=== PATIENT | female | born 1985 | race African-American/Black ===

== ENCOUNTER 2020-04-13 10:25 | Emergency (ER) | payer SELFPAY ==
--- NOTE | 2020-04-13 10:33 | ED_ITS ---
HPI - General Adult General Stated complaint: left side abd pin History of Present Illness HPI narrative: I did not fully evaluate this patient. She presented with left sided upper abdominal pain. I discussed with patient prior to registration that we would be happy to evaluate her at [facility] and were not refusing her service, but did not have abilities to fully work-up abdominal pain with items such as blood work, ultrasound, CT scan etc and there was a possibility that she would likely be sent to the ER for further evaluation after her initial evaluation here. She has opted to not stay at [facility] for initial evaluation and would like to seek care elsewhere. I did let her know that we were always here for her in the future for any problems she may experience and wished her good luck. Related Data Allergies Allergy/AdvReac Type Severity Reaction Status Date / Time Penicillins Allergy Mild UNKNOWN Verified 09/01/13 18:07
== END 2020-04-13 10:53 | disposition left against medical advice (07) ==
PROVIDERS: Emergency Provider Nurse Practitioner
DX: Z53.21 Procedure and treatment not carried out due to patient leaving prior to being seen by health care provider (principal)
CPT/HCPCS: 99199

== ENCOUNTER 2021-01-11 08:13 | Emergency (ER) | payer OTHER, SELFPAY ==
[2021-01-11 08:24] VITALS: BP 96/58; PULSE 71; RESP 16; TEMP 36.2; O2SAT 100
--- NOTE | 2021-01-11 08:33 | ED.GENADULT ---
HPI - General Adult General Chief complaint: Allergic Reaction Stated complaint: Allergic Reaction Source: patient Mode of arrival: ambulatory Limitations: no limitations History of Present Illness HPI narrative: Patient presents for evaluation of pruritic rash. She states that symptoms started earlier this week but she is unsure of the exact date. No new lotions, soaps, detergents, topical products. No new foods. She states that rash is present to the face, back, extremities x4. She states a family member recently experiencing pruritus as well. Denies any involvement of the palmar aspect of the hands or the plantar aspect of feet. She is not sexually active. She has not tried any therapies to assist with her symptoms. No additional complaints or concerns. Related Data Home Medications Medication Instructions Recorded Confirmed ergocalciferol (vitamin D2) 1,250 mcg PO DIRECTED 01/11/21 01/11/21 ferrous sulfate [FeroSul] 325 mg PO DIRECTED 01/11/21 01/11/21 Allergies Allergy/AdvReac Type Severity Reaction Status Date / Time Penicillins Allergy Mild UNKNOWN Verified 01/11/21 08:21 Review of Systems Review of Systems: Narrative: CONSTITUTIONAL: Denies fever, chills, or sweats. EYES: Denies visual changes, redness, or discharge. ENT: Denies rhinorrhea, congestion, sore throat, or otalgia. CARDIOVASCULAR: Denies chest pain, palpitations, or edema. RESPIRATORY: Denies cough or dyspnea. GASTROINTESTINAL: Denies abdominal pain, nausea, vomiting, or diarrhea. GENITOURINARY: Denies dysuria or hematuria. SKIN: Reports pruritic rash to face, back, extremities x4 MUSCULOSKELETAL: Denies back pain, joint pain, or myalgia. NEUROLOGIC: Denies headache, numbness, dizziness, or weakness. PSYCHIATRIC: Denies anxiety or depression. [facility] Past Medical History Medical History (Updated 01/11/21 @ 08:39 by Julio Perez, MAURIZIO, BC) Iron deficiency Surgical History Surgical History No pertinent past surgical history Family History Family History Mother Diabetes mellitus Hypertension Father Cancer Social History Social History Smoking status: Never smoker Substance use: never Living arrangements: alone Gender identity (if verbalized by the patient): Female Spiritual care concerns: No Exam Narrative: Exam Narrative: GENERAL: Well-appearing, well-nourished, and in no acute distress. HEAD: Normocephalic, atraumatic. EYES: PERRLA and EOMI. ENT: Nares clear, no rhinorrhea or epistaxis. Mucous membranes moist. Oropharynx without tonsillar hypertrophy exudate or other lesions. Bilateral TMs pearly vera nonbulging NECK: Supple. No adenopathy or masses. No carotid bruits or JVD CHEST: Clear to auscultation. No respiratory distress. No wheezes rales or rhonchi HEART: Regular rate and rhythm. No murmur heard. Normal peripheral pulses. ABDOMEN: Soft, nontender, nondistended, normal active bowel sounds. EXTREMITIES: Normal range of motion. No edema. SKIN: Flat, macular, erythematous rash to back. There are a few closed comedones to face NEURO: No focal deficits. Alert and oriented x3. PSYCH: Normal mood and affect. Course Course Emergency Course: This is a 35-year-old female who presents for evaluation of rash that started this week. She has no involvement of the palms of her hands or the plantar aspect of the feet to suggest syphilis. Etiology unclear. Will tx with prednisone and vistaril. Will have her follow up outpatient and return for worsening symptom Vital Signs Vital signs: Vital Signs Temperature 36.2 C L 01/11/21 08:24 Pulse Rate 71 01/11/21 08:24 Respiratory Rate 16 01/11/21 08:24 Blood Pressure 96/58 L 01/11/21 08:24 Pulse Oximetry 100 01/11/21 08:24 Temperature 36.2
== END 2021-01-11 08:42 | disposition home or self-care (01) ==
PROVIDERS: Emergency Provider Nurse Practitioner
DX: R21 Rash and other nonspecific skin eruption (principal); D50.9 Iron deficiency anemia, unspecified
CPT/HCPCS: 99213; G0463

== ENCOUNTER 2023-09-02 16:17 | Outpatient (CLI) | payer OTHER, SELFPAY ==
--- NOTE | ~2023-09-02 | XR_ITS ---
EXAMINATION: XR chest 2V 09/02/2023 16:42 INDICATION: Acute bronchitis PROCEDURE: 2 view chest COMPARISON: No prior studies for comparison. FINDINGS: The lungs are clear. The cardiomediastinal silhouette is within normal limits. There are no pleural effusions. There is no pneumothorax suspected. IMPRESSION: 1: NO ACUTE CARDIOPULMONARY DISEASE. Reviewed, dictated and finalized at location A.
== END 2023-09-02 16:18 ==
DX: J20.9 Acute bronchitis, unspecified (principal); R04.2 Hemoptysis
CPT/HCPCS: 71046